=== PATIENT | male | born 1955 | race Caucasian/White ===

== ENCOUNTER 2021-10-18 08:48 | Day surgery (SDC) | payer MEDICARE, OTHER ==
[2021-10-18] MEDS ORDERED: Depo-Medrol 40 MG/ML IM ONE (08:49)
[2021-10-18] MEDS ORDERED: Xylocaine 1% Vial 30 ML PF IJ ONE (08:49)
[2021-10-18] MEDS ORDERED: BUPIVACAINE 0.5% VIAL IJ ONE (08:49)
--- NOTE | 2021-10-18 13:24 | XRAY ---
7 seconds of fluoroscopy was used in surgery for a left knee intra-articular injection.
--- NOTE | 2021-10-18 13:24 | XRAY ---
Indication: Left knee injection. Intraoperative fluoroscopy provided for 7 seconds. Single digital spot image submitted for interpretation demonstrates needle tip projecting over the left femur intercondylar notch. Small amount of contrast injected for needle tip placement. Correlate with intraoperative findings/report.
--- NOTE | 2021-10-18 13:34 | XRAY ---
21 seconds of fluoroscopy was used in surgery for a right knee intra-articular injection.
--- NOTE | 2021-10-18 13:34 | XRAY ---
Indication: Right knee injection. Intraoperative fluoroscopy provided for 21 seconds. Single digital spot image submitted for interpretation demonstrates needle tip projecting over the right femur intercondylar notch. Small amount of contrast injected for needle tip placement. Correlate with intraoperative findings/report.
== END 2021-10-18 11:00 | disposition home or self-care (01) ==
LOC: SDC-PAIN 08:48
PROVIDERS: ATTEND Psychiatry & Neurology Pain Medicine
DX: M17.0 Bilateral primary osteoarthritis of knee (principal); Z79.899 Other long term (current) drug therapy
CPT/HCPCS: 20610; 73560; 77002; J1030; J2001; Q9966

== ENCOUNTER 2022-12-26 14:06 | Day surgery (SDC) | payer MEDICARE ==
[2022-12-26] MEDS ORDERED: Sodium Chloride 0.9(Preservative Free) 10 ML IJ ONE (14:07)
[2022-12-26] MEDS ORDERED: Depo-Medrol 40 MG/ML IM ONE (14:07)
[2022-12-26] MEDS ORDERED: Pepcid 20 MG VIAL IV ONE (14:23)
[2022-12-26] MEDS ORDERED: Reglan 10 MG/2 ML ONE (14:23)
[2022-12-26] MEDS ORDERED: Zofran 4 MG/2 ML VIAL ONE (14:23)
[2022-12-26] MEDS ORDERED: DIPRIVAN 200 MG/20 ML IV ONE (16:28)
[2022-12-26] MEDS ORDERED: Lactated Ringers 1,000 ML IV ONE (17:16)
--- NOTE | 2022-12-26 20:51 | XRAY ---
Indication: Right L3-L5 transforaminal GRACE. Intraoperative fluoroscopy provided for 28 seconds. 4 digital spot image submitted for interpretation demonstrates posterior needle tips projecting over the expected right L3 and L4 nerve roots. Small amount of contrast injected for needle tip placement. Correlate with intraoperative findings/report.
--- NOTE | 2022-12-27 08:43 | XRAY ---
28 seconds of fluoroscopy was used in surgery for a right L3-L5 transforaminal GRACE.
== END 2022-12-26 16:55 | disposition home or self-care (01) ==
LOC: SDC-PAIN 14:06
PROVIDERS: ATTEND Psychiatry & Neurology Pain Medicine
DX: M54.16 Radiculopathy, lumbar region (principal); C61 Malignant neoplasm of prostate; Z79.899 Other long term (current) drug therapy
CPT/HCPCS: 64483; 64484; 72100; 77003; J1030; J2405; J2704; Q9966

== ENCOUNTER 2023-12-11 15:59 | Day surgery (SDC) | payer MEDICARE ==
[2023-12-11] MEDS ORDERED: XYLOCAINE-MPF 1% 5ML SDV IJ ONE (16:00)
[2023-12-11] MEDS ORDERED: BUPIVACAINE 0.5% VIAL IJ ONE (16:00)
[2023-12-11] MEDS ORDERED: Depo-Medrol 40 MG/ML IM ONE (16:00)
--- NOTE | 2023-12-11 19:37 | XRAY ---
Indication: Right shoulder and subacromial bursa injection. Intraoperative fluoroscopy provided for 19 seconds. 2 digital spot image submitted for interpretation demonstrates needle tip projecting over right glenohumeral joint superiorly. Second needle tip subacromial. Small amount of contrast injected for both needle tip placement. Correlate with intraoperative findings/report.
--- NOTE | 2023-12-12 12:16 | XRAY ---
19 seconds of fluoroscopy was used in surgery for a right intra-articular shoulder and subacromial bursa injection.
== END 2023-12-11 18:05 | disposition home or self-care (01) ==
LOC: SDC-PAIN 15:59
PROVIDERS: ATTEND Psychiatry & Neurology Pain Medicine
DX: M19.011 Primary osteoarthritis, right shoulder (principal); M75.51 Bursitis of right shoulder
CPT/HCPCS: 20610; 73030; 77002; J1030; Q9966